=== PATIENT | male | born 1990 | race American Indian/Alaskan Native ===

== ENCOUNTER 2018-07-26 03:29 | Emergency (ER) | payer OTHER ==
[2018-07-26 04:55] VITALS: BP 121/64
[2018-07-26] MEDS ORDERED: MOTRIN ONE (05:46)
[2018-07-26] MEDS ORDERED: MOTRIN PO ONE (06:01)
--- NOTE | 2018-07-26 07:38 | XRay Report ---
FINAL REPORT PROCEDURE: XR SPINE LUMBOSACRAL 2-3V TECHNIQUE: Lumbar spine radiographs, including AP, lateral, and lumbosacral spot views. CPT 19287 HISTORY: lower back pain COMPARISON: No prior studies are available for comparison. FINDINGS: Alignment: Normal. Vertebral body heights/Disk spaces: Normal. Fracture(s): None. Facets: Normal. Bone mineralization: Normal. IMPRESSION: Normal Examination.
--- NOTE | 2018-07-26 07:39 | XRay Report ---
FINAL REPORT PROCEDURE: XR SPINE CERVICAL 2-3V TECHNIQUE: Cervical spine complete, including AP, lateral, open-mouth odontoid, oblique and flexion and extension studies. CPT 58118 HISTORY: neck pain COMPARISON: No prior studies are available for comparison. FINDINGS: Prevertebral soft tissues: Normal . Alignment in neutral position: Normal . Vertebral body movement with flexion and extension: Physiologic . Vertebral body heights/Disk spaces: Normal . Fracture(s): None . Neural foramina: Normal . Facets: Normal . Bone mineralization: Normal . IMPRESSION: Normal Examination
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
== END 2018-07-26 09:54 | disposition home or self-care (01) ==
LOC: ED 03:29
DX: S46.911A Strain of unspecified muscle, fascia and tendon at shoulder and upper arm level, right arm, initial encounter (principal); S39.012A Strain of muscle, fascia and tendon of lower back, initial encounter; S16.1XXA Strain of muscle, fascia and tendon at neck level, initial encounter; F17.200 Nicotine dependence, unspecified, uncomplicated; F32.9 Major depressive disorder, single episode, unspecified; Z88.6 Allergy status to analgesic agent; V49.59XA Passenger injured in collision with other motor vehicles in traffic accident, initial encounter; Y93.89 Activity, other specified; Y99.8 Other external cause status; Y92.89 Other specified places as the place of occurrence of the external cause
CPT/HCPCS: 72040; 72100; 99283

== ENCOUNTER 2019-07-28 01:20 | Emergency (ER) | payer SELFPAY ==
[2019-07-28] MEDS ORDERED: NACL 0.9% 1000 ML 1,000 ML IV ONE (01:30)
[2019-07-28] MEDS ORDERED: BOOSTRIX IM ONE (01:31)
[2019-07-28 01:48] LABS: Hematocrit 41.6 % (35.5-45.6); Hemoglobin 14.4 gm/dl (11.8-15.2); Mean Corpuscular HGB Conc 35 % (32-34); Mean Corpuscular Volume 87 fl (84-94); Platelet Count 225 K/mm3 (140-440); Red Blood Count 4.79 M/mm3 (3.65-5.03); Red Cell Distribution Width 13.5 % (13.2-15.2)
[2019-07-28] MEDS ORDERED: ANCEF/NS 1 GM/50 ML 1 GM/50 ML BAG IV ONE (02:00)
[2019-07-28 02:02] LABS: INR 0.98 (0.87-1.13); Partial Thromboplastin Time 26.9 Sec. (24.2-36.6)
[2019-07-28 02:10] LABS: Alanine Aminotransferase 25 units/L (7-56); Albumin 4.4 g/dL (3.9-5); BUN/Creatinine Ratio 8; Blood Urea Nitrogen 7 mg/dL (9-20); Calcium 9.4 mg/dL (8.4-10.2); Hemolysis Index 37
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
[2019-07-28] MEDS ORDERED: NACL 0.9% 500 ML IR ONE (03:28)
[2019-07-28 03:57] VITALS: BP 158/96
[2019-07-28 03:57] LABS: Basophils % (Manual) 0 % (0.0-1.8); Eosinophils % (Manual) 0 % (0.0-4.3); Total Cells Counted 100
[2019-07-28 03:58] LABS: Large Platelets Few; Ovalocytes Few; Platelet Estimate Consistent w Auto
[2019-07-28] MEDS ORDERED: NACL 0.9% 1000 ML 1,000 ML ONE (05:39)
== END 2019-07-28 03:56 | disposition home or self-care (01) ==
LOC: ED 01:20
DX: S41.101A Unspecified open wound of right upper arm, initial encounter (principal); S10.91XA Abrasion of unspecified part of neck, initial encounter; S40.212A Abrasion of left shoulder, initial encounter; F32.9 Major depressive disorder, single episode, unspecified; F12.90 Cannabis use, unspecified, uncomplicated; Z79.899 Other long term (current) drug therapy; Z88.6 Allergy status to analgesic agent; W34.00XA Accidental discharge from unspecified firearms or gun, initial encounter; Y93.89 Activity, other specified; Y92.89 Other specified places as the place of occurrence of the external cause; Y99.8 Other external cause status
CPT/HCPCS: 36415; 70450; 73060; 73090; 80053; 85007; 85025; 85610; 85730; 90471; 90715; 96365; 99284; J0690; J7030; 80320; G0480

== ENCOUNTER 2019-07-28 21:11 | Emergency (ER) | payer SELFPAY ==
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
[2019-07-28 22:00] VITALS: BP 120/69
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
[2019-07-29] MEDS ORDERED: ZOFRAN ODT PO ONE (00:07)
[2019-07-29] MEDS ORDERED: DILAUDID IM ONE (00:07)
== END 2019-07-29 00:23 | disposition home or self-care (01) ==
LOC: ED 21:11
DX: S41.101A Unspecified open wound of right upper arm, initial encounter (principal); F32.9 Major depressive disorder, single episode, unspecified; F17.200 Nicotine dependence, unspecified, uncomplicated; Z88.8 Allergy status to other drugs, medicaments and biological substances; Z79.1 Long term (current) use of non-steroidal anti-inflammatories (NSAID); Z79.899 Other long term (current) drug therapy; W34.09XA Accidental discharge from other specified firearms, initial encounter; Y93.89 Activity, other specified; Y92.89 Other specified places as the place of occurrence of the external cause; Y99.8 Other external cause status
CPT/HCPCS: 96372; 99282; J1170; Q0162